=== PATIENT | male | born 2000 | race Caucasian/White ===

== ENCOUNTER 2021-12-27 11:03 | Emergency (ER) | payer OTHER, SELFPAY ==
--- NOTE | 2021-12-27 11:15 | DI.RAD_ITS ---
Exam(s) XR FOOT LT COMPLETE EXAM: XR FOOT LT COMPLETE CLINICAL HISTORY: heavy object fell on top of L foot, r/o fx TECHNIQUE: COMPARISON: No exams were available for comparison FINDINGS: Three views were obtained. There is no evidence of acute fracture or dislocation. IMPRESSION: RADIATION DOSE DELIVERED: Total DLP
--- NOTE | 2021-12-27 11:16 | ED.GENADUL_ITS ---
Discharge Plan Disposition Patient Disposition: HOME Condition: Stable Discharge Details Clinical Impression: Contusion of left foot Primary Care Provider: None,None ED Provider: Nohemy Jaramillo Home Meds and New Rx's Prescriptions: No Action No Known Home Meds 0RF Discharge Instructions Additional Instructions: Your x-ray today did not show evidence of a fracture. Rest, ice, and elevate the affected area as much as possible. Alternate tylenol and motrin as needed and directed for pain. You have been placed on care management's list to arrange for follow-up bertin ointment with a primary care doctor to establish care and for reevaluation in the next week and for referral for repeat x-ray if your symptoms do not improve or worsen. You were given orthopedic follow-up information if needed. Return immediately to the emergency department if you develop any worsening or new concerning symptoms. Referrals: Pedro Pablo Nam MD [ [facility] STAFF PHYSICIAN] - Discharge Data Discharge Date/Time-TO BE ENTERED AT DEPARTURE: 12/27/21 12:16 Discharge Physician: Nohemy Jaramillo Medical Decision Making 21-year-old male presents with left foot pain and swelling after a 300 pound truck transmission dropped on his foot yesterday afternoon at work. He has moderate edema and ecchymosis to the dorsum of his left foot. There is no obvious deformity. He has neurovascular intact. He has a small superficial abrasion. His tetanus is up to date. Will obtain a L foot xray. X-ray reviewed and negative. Patient placed in walking boot and given crutches. Patient does not have a PCP. He was placed on care management list to arrange for follow-up appointment with the primary care doctor to establish care and for reevaluation in the next week and for referral for repeat x-ray and with orthopedics if indicated. Usual and customary return precautions given prior to discharge. Medical Records Medical records reviewed: Yes I reviewed the patient's medical records. Imaging Data Radiologic Study: Radiologist's impression: ?XR FOOT LT COMPLETE CLINICAL HISTORY:? heavy object fell on top of L foot, r/o fx TECHNIQUE:? COMPARISON:? No exams were available for comparison FINDINGS: Three views were obtained.? There is no evidence of acute fracture or dislocation. HPI General Mode of arrival: ambulatory . Date/Time Provider Initiated Documentation: 12/27/21 11:16 . Limitations to Documentation: no limitations . Information obtained by: patient . HPI Narrative: Patient is a 21-year-old male presents with left foot pain and swelling after a 300 pound truck transmission dropped on his foot yesterday afternoon. He has been minimizing ambulation on his foot due to pain. He last took ibuprofen 5 hours ago. He denies any ankle pain or any other injury Related Data Home Medications Medication Instructions Recorded Confirmed Unknown [No Known Home Meds] 12/27/21 12/27/21 Allergies Allergy/AdvReac Type Severity Reaction Status Date / Time No Known Allergies Allergy Unverified 12/27/21 11:20 General Stated Complaint: Orthopedic RADHA: 4 Review of Systems All systems reviewed & are unremarkable except as noted in HPI and below Constitutional Constitutional: Reports as per HPI, Denies chills and Denies fever(s) Eyes Eyes: Denies blurry vision ENT Ears, Nose, Mouth, and Throat: Denies dizziness, Denies sore throat and Denies throat swelling Cardiovascular Cardiovascular: Denies chest pain and Denies dyspnea Respiratory Respiratory: Denies cough and Denies dyspnea Gastrointestinal Gastrointestinal: Denies abdominal pain, Denies diarrhea and Denies vomiting Genitourinary Genitourinary: Denies hematuria and Denies dysuria Musculoskeletal Musculoskeletal: Denies back pain and Denies numbness Comments: L foot pain and swelling Integumentary/Breasts Skin/Breast: Denies lesions and Denies rash Neurologic Neurologic: Denies dizziness, Denies localized weakness and Denies numbness Allergic/Immunologic Allergic/Immunologic: Denies throat swelling PFSH All Active Problems (Updated 12/27/21 @ 12:02 by Nohemy Jaramillo DO) Contusion of left foot (Acute) Medical History (Updated 12/27/21 @ 12:02 by Nohemy Jaramillo DO) No significant past medical history Surgical History (Updated 12/27/21 @ 11:35 by Nohemy Jaramillo DO) No significant past surgical history Social History Smoking/Tobacco Use Status: Never Smoking risk assessment performed?: Yes Substance use type: does not use Exam Const General: cooperative and healthy appearing Orientation: alert, awake and oriented x3 Extrem Ankle/foot/toe images: 1. Moderate edema and ecchymosis noted to the dorsal foot. Majority of ecchymosis is near the base of the toes. There is a 2 mm superficial abrasion on the dorsum of the midfoot. There is no active bleeding. No obvious bony deformity noted. Left DP and PT pulses intact. Other: There is no tenderness to palpation or evidence of trauma noted to the left medial and lateral malleoli Procedures Orthopedic Splinting/Casting Injury #1: Side: left Lower Extremity Injury Location: foot Lower Extremity Immobilizer: boot orthosis Other Orthopedic Equipment: crutches
[2021-12-27 11:18] VITALS: BP 119/52; PULSE 72; RESP 16; TEMP 37; O2SAT 97
--- NOTE | 2021-12-27 12:00 | NUR.NOTE ---
Nursing Note: PT INFO GIVEN TO CARE MANAGEMENT TO ESTABLISH CARE AND FOLLOW UP FOR FOOT CONTUSION IN ONE TO TWO WEEKS. MARTHA, ED
--- NOTE | 2021-12-31 16:09 | PDOC.ERCMACT ---
- If Service Date Differs Date of service: 12/31/21 Time of Service: 16:09 Care Management Activity Note Mary Grace is seen in the ED for contusion of left foot. At the request of ED provider, DONA coordinates a referral to DEBORAH Lo, of [facility], on-call provider, to assist Mary Grace in obtaining a follow up appointment and in establishing care with a PCP. A referral is also made to [facility] as he is uninsured.
== END 2021-12-27 12:16 | disposition home or self-care (01) ==
PROVIDERS: Emergency Provider Physician Assistant
DX: S90.32XA Contusion of left foot, initial encounter (principal); W20.8XXA Other cause of strike by thrown, projected or falling object, initial encounter; Y99.0 Civilian activity done for income or pay
CPT/HCPCS: 29515; 99283; 73630